=== PATIENT | female | born 1995 | race Caucasian/White ===

== ENCOUNTER 2020-09-25 13:09 | Emergency (ER) | payer OTHER, SELFPAY ==
[2020-09-25 13:21] VITALS: BP 123/64; PULSE 81; RESP 18; TEMP 37.2; O2SAT 99
--- NOTE | 2020-09-25 13:34 | ED.GENADULT ---
HPI - General Adult General Chief complaint: Wound/Laceration Stated complaint: laceration Source: patient Mode of arrival: ambulatory Limitations: no limitations History of Present Illness HPI narrative: 25 y/o female. PMH includes: None reported. Presents to ED today with acute complaints of RT hand dog bite. 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 Client states that the dog is well know to the family, and is UTD on immunizations. Bleeding is controlled. Incident had occurred immediately [employer]. No bony pain or trauma. -Client reports unknown last Tetanus, but refused updated Tetanus in [facility] today. -In addition, she is refusing to complete animal control form, stating that she doesn't want her client to be contacted . Related Data Home Medications Medication Instructions Recorded Confirmed norelgestromin-ethin.estradiol 1 patch TRANSDERMAL WEEKLY 09/25/20 09/25/20 [Xulane] Allergies Allergy/AdvReac Type Severity Reaction Status Date / Time No Known Allergies Allergy Verified 09/25/20 13:12 Review of Systems Review of Systems: Narrative: CONSTITUTIONAL: Denies fever, chills, sweats. EYES: Denies visual changes, redness, discharge. ENT: Denies rhinorrhea, congestion, sore throat, otalgia. CARDIOVASCULAR: Denies chest pain, palpitations, edema. RESPIRATORY: Denies dyspnea, wheezing, cough GASTROINTESTINAL: Denies abdominal pain, nausea, vomiting, diarrhea. GENITOURINARY: Denies dysuria, hematuria, abnormal discharge SKIN: Dog bite RT hand. MUSCULOSKELETAL: Denies acute back pain, joint pain, or myalgia. NEUROLOGIC: Denies numbness, or focal weakness. PSYCHIATRIC: Denies anxiety or depression. All systems reviewed & are unremarkable except as noted in HPI and below PMFSH Past Medical History Medical History (Updated 09/25/20 @ 13:47 by CHILANGO Forde) Dog bite of hand Social History Social History Smoking status: Never smoker Second hand tobacco smoke exposure: Yes Alcohol intake: current Gender identity (if verbalized by the patient): Female Exam Narrative: Exam Narrative: GENERAL: This is a well-nourished, well-developed patient, in no apparent distress. HEAD: normocephalic, atraumatic. EARS: External ears normal. NECK: Neck supple, non-tender without lymphadenopathy, masses or thyromegaly. CARDIOVASCULAR: Regular rate and rhythm without murmurs, gallops, or rubs. Pulses RUE intact, strong. RESPIRATORY: Clear to auscultation. Breath sounds equal bilaterally. No wheezes, rales, or rhonchi. GASTROINTESTINAL: Abdomen soft, non-tender, nondistended. SKIN: With 0.5 cm dog bite/puncture wound to RT dorsal hand overlying pointer metacarpal. Superficial. No deep tissue or tendon involvement. Bleeding is controlled. No FB. NEURO: awake, alert, and oriented to person, place and time. There were no obvious focal neurologic abnormalities. Sensation RUE is preserved. Steady gait. EXTREMITIES: Normal range of motion. Full flexion and extension of RUE digits and joints. No edema, swelling, or deformity. Course Vital Signs Vital signs: Vital Signs Temperature 37.2 C 09/25/20 13:21 Pulse Rate 81 09/25/20 13:21 Respiratory Rate 18 09/25/20 13:21 Blood Pressure 123/64 09/25/20 13:21 Pulse Oximetry 99 09/25/20 13:21 Temperature 37.2 C 09/25/20 13:21 Pulse Rate 81 09/25/20 13:21 Respiratory Rate 18 09/25/20 13:21 Blood Pressure 123/64 09/25/20 13:21 Pulse Oximetry 99 09/25/20 13:21 Medical Decision Making MDM Narrative Medical decision making narrative: -Wound care has been provided in clinic, irrigated. -Wound covered with sterile gauze. -No active bleeding. No deep tissue or tendon injury. -No bony disruption. -No neurovascular deficits. -Client has declined Tetanus & has refused to comple
== END 2020-09-25 13:55 | disposition home or self-care (01) ==
PROVIDERS: Emergency Provider Nurse Practitioner Adult Health
DX: S61.411A Laceration without foreign body of right hand, initial encounter (principal); W54.0XXA Bitten by dog, initial encounter; Y99.0 Civilian activity done for income or pay
CPT/HCPCS: 99213; G0463